=== PATIENT | female | born 1995 | race Caucasian/White ===

== ENCOUNTER 2016-06-06 17:50 | Emergency (ER) | payer BC, OTHER ==
[2016-06-06 18:10] VITALS: BP 121/67
[2016-06-06] MEDS ORDERED: Cyclobenzaprine TAB* 10 MG PO ONE (18:33)
--- NOTE | 2016-06-06 18:33 | UC ---
Upper Extremity HPI - HPI Summary HPI Summary: 21 y/o female c/o of left shoulder dislocation occurred around 1245 hours today while raising the arm at work, patient was able to get her shoulder back into place, 6/10 constant pain radiating into the left hand, described as as deep numbness/tingling sensation and spasm. Patient has a history of dislocating the shoulder in the past. - History of Current Complaint Chief Complaint: UCUpperExtremity Stated Complaint: LEFT SHOULDER PAIN-WC Time Seen by Provider: 06/06/16 18:13 Hx Obtained From: Patient Hx Last Menstrual Period: 05/12/16 ?: No Onset/Duration: Sudden Onset Severity Initially: Severe Severity Currently: Moderate Pain Intensity: 6 Pain Scale Used: 0-10 Numeric Location Of Pain: Is Diffuse - Left shoulder, Radiates To - down the left arm and into the left hand Character: Dull, Aching, Burning Alleviating Factor(s): Rest Associated Signs And Symptoms: Positive: Weakness, Numbness/Tingling Related History: Occupational Injury, Dominant Hand Right - Risk Factors Non-Orthopedic Risk Factor: Negative DVT Risk Factors: Oral Contraceptives Septic Arthritis Risk Factor: Negative Compartment Syndrome Risk Factors: Pain, Paresthesias - Allergies/Home Medications Allergies/Adverse Reactions: Allergies Allergy/AdvReac Type Severity Reaction Status Date / Time Sulfa Antibiotics Allergy rash Verified 06/06/16 18:10 Home Medications: Home Medications Acetaminophen [Extra Strength Acetaminop] 1,000 mg PO DAILY PRN 06/06/16 [ History Confirmed 06/06/16] Citalopram TAB* [Celexa TAB*] 10 mg PO BEDTIME 06/06/16 [History Confirmed 06/06] Diclofenac Sodium EC TAB* [Voltaren EC TAB*] 100 mg PO BEDTIME 06/06/16 [ History Confirmed 06/06/16] Folic Acid 5 mg PO BEDTIME 06/06/16 [History Confirmed 06/06/16] Gabapentin CAP(*) [Neurontin 100 mg CAP(*)] 100 mg PO TID 06/06/16 [History Confirmed 06/06/16] HYDROcodone/ACETAMIN 5-325 MG* [[place] 5-325 TAB*] 1 tab PO Q8H PRN 06/06/16 [ History Confirmed 06/06/16] Melatonin 10 mg PO BEDTIME 06/06/16 [History Confirmed 06/06/16] Methotrexate Sodium [Trexall] 10 mg PO SEE INSTRUCTIONS 06/06/16 [History Confirmed 06/06/16] PMH/Surg Hx/FS Hx/Imm Hx Previously Healthy: Yes Endocrine History Of: Denies: Diabetes, Thyroid Disease Cardiovascular History Of: Denies: Cardiac Disorders, Hypertension Respiratory History Of: Reports: Asthma - EXERCISE INDUCED Denies: COPD GI/ History Of: Denies: Ulcer - Surgical History Surgical History: None - Family History Known Family History: Positive: None Negative: Cardiac Disease, Hypertension, Diabetes, Respiratory Disease - Social History Alcohol Use: Occasionally Substance Use Type: None Smoking Status (MU): Current Every Day Smoker Type: Cigarettes Amount Used/How Often: 1/2 ppd Length of Time of Smoking/Using Tobacco: 3 yrs Have You Smoked in the Last Year: Yes Review of Systems Constitutional: Negative Skin: Negative Eyes: Negative ENT: Negative Cardiovascular: Negative Gastrointestinal: Negative Genitourinary: Negative Motor: Decreased ROM - Left shoulder, Weakness - Left upper extremity Neurovascular: Negative Musculoskeletal: Other: - hyper ligamentous laxity history Neurological: Negative Psychological: Negative All Other Systems Reviewed And Are Negative: Yes Physical Exam Triage Information Reviewed: Yes Appearance: Well-Appearing, No Pain Distress, Well-Nourished Vital Signs: Initial Vital Signs Temp 98.6 F 06/06/16 18:02 Pulse 76 06/06/16 18:02 Resp 20 06/06/16 18:02 BP 121/67 06/06/16 18:02 Pulse Ox 99 06/06/16 18:02 Vital Signs Reviewed: Yes Eye Exam: Normal ENT Exam: Normal ENT: Positive: Normal ENT inspection, Hearing grossly normal, Pharynx normal, TMs normal Dental Exam: Normal Neck exam: Normal Neck: Positive: Supple, Nontender, No Lymphadenopathy Respiratory Exam: Normal Respiratory: Positive: Chest non-tender, Lungs clear, Normal breath sounds, No respiratory distress, No accessory muscle use Cardiovascular Exam: Normal Cardiovascular: Positive: RRR, No Murmur, Pulses Normal, Brisk Capillary Refill Abdominal Exam: Normal Abdomen Description: Positive: Nontender, No Organomegaly, Soft Bowel Sounds: Positive: Present Musculoskeletal: Positive: Strength Limited @ - Left upper extremity, ROM Limited @ - left shoulder Neurological: Positive: Alert, Muscle Tone Normal Psychological Exam: Normal Skin Exam: Normal Upper Extremity Course/Dx - Differential Dx/Diagnosis Provider Diagnoses: Left shoulder dislocation with spontaneous reduction, work related injury Discharge - Discharge Plan Condition: Stable Disposition: HOME Prescriptions: Cyclobenzaprine TAB* [Flexeril TAB*] 5 mg PO TID PRN #30 tab PRN Reason: Pain Patient Education Materials: Shoulder Dislocation (ED) Referrals: Cj CHENEY,Jane West [Primary Care Provider] - As Soon As Possible Antonio Chavez MD [Medical Doctor] -
--- NOTE | 2016-06-06 18:53 | RAD ---
INDICATION: Left shoulder pain COMPARISON: None TECHNIQUE: Routine frontal and Y views were obtained. FINDINGS: The bony structures, joint spaces, and soft tissues are normal for age. IMPRESSION: NEGATIVE EXAMINATION.
== END 2016-06-06 19:17 | disposition home or self-care (01) ==
LOC: UCCORT 17:50
DX: S43.005A Unspecified dislocation of left shoulder joint, initial encounter (principal); X50.1XXA Overexertion from prolonged static or awkward postures, initial encounter; Y93.9 Activity, unspecified; Y92.89 Other specified places as the place of occurrence of the external cause; Y99.0 Civilian activity done for income or pay; Z88.2 Allergy status to sulfonamides; F17.210 Nicotine dependence, cigarettes, uncomplicated
CPT/HCPCS: 99213; A9270-GY; G0463

== ENCOUNTER 2016-11-18 09:41 | Emergency (ER) | payer BC ==
--- NOTE | 2016-11-18 11:14 | UC ---
Throat Pain/Nasal Tuan HPI - HPI Summary HPI Summary: 21 YEAR OLD PRESENTS WITH COMPLAINS OF RIGHT SIDED LARGE ABSCESS. I WILL SEND HER TO THE ER. - History of Current Complaint Stated Complaint: SORE THROAT,FEVER,SWOLLEN NECK,NAUSEA Time Seen by Provider: 11/18/16 11:14 Hx Obtained From: Patient Hx Last Menstrual Period: 05/12/16 Onset/Duration: Sudden Onset Severity: Moderate Pain Scale Used: 0-10 Numeric - 7 Cough: Nonproductive Associated Signs & Symptoms: Positive: Dysphagia - Allergies/Home Medications Allergies/Adverse Reactions: Allergies Allergy/AdvReac Type Severity Reaction Status Date / Time Sulfa Antibiotics Allergy rash Verified 11/18/16 11:27 Home Medications: Home Medications Dextromethorphan-Phenylephrine [Vicks Dayquil Cold & Flu] 2 cap PO Q6H PRN 11/18 [History Confirmed 11/18/16] PMH/Surg Hx/FS Hx/Imm Hx Previously Healthy: Yes - Surgical History Surgical History: None - Family History Known Family History: Positive: None Negative: Cardiac Disease, Hypertension, Diabetes, Respiratory Disease - Social History Alcohol Use: Occasionally Substance Use Type: None Smoking Status (MU): Current Every Day Smoker Type: Cigarettes Amount Used/How Often: 1/2 ppd Length of Time of Smoking/Using Tobacco: 3 yrs Have You Smoked in the Last Year: Yes Review of Systems Constitutional: Negative Skin: Negative Eyes: Negative ENT: Sore Throat Respiratory: Negative Cardiovascular: Negative Gastrointestinal: Negative Genitourinary: Negative Motor: Negative Neurovascular: Negative Musculoskeletal: Negative Neurological: Negative Psychological: Negative All Other Systems Reviewed And Are Negative: Yes Physical Exam Triage Information Reviewed: Yes Eye Exam: Normal ENT: Positive: Pharyngeal erythema, Nasal drainage, Tonsillar swelling, Tonsillar exudate Dental Exam: Normal Neck exam: Normal Neck: Positive: 1 Respiratory Exam: Normal Cardiovascular Exam: Normal Abdominal Exam: Normal Musculoskeletal Exam: Normal Neurological Exam: Normal Psychological Exam: Normal Skin Exam: Normal Throat Pain/Nasal Course/Dx - Differential Dx/Diagnosis Provider Diagnoses: PERITONSIOLLAR ABSCESS Discharge - Discharge Plan Condition: Stable Disposition: HOME Patient Education Materials: Pharyngitis (ED), Peritonsillar Abscess (ED) Referrals: Cj CHENEY,Jane West [Primary Care Provider] - Additional Instructions: PLEASE GO TO ER FOR PERITONSILLAR ABSCESS
[2016-11-18 11:27] VITALS: BP 125/86
== END 2016-11-18 11:38 | disposition home or self-care (01) ==
LOC: UCCORT 09:41
DX: J36 Peritonsillar abscess (principal); Z88.2 Allergy status to sulfonamides; F17.210 Nicotine dependence, cigarettes, uncomplicated
CPT/HCPCS: 99211; G0463

== ENCOUNTER 2017-06-15 13:29 | Emergency (ER) | payer SELFPAY ==
[2017-06-15] MEDS ORDERED: Ibuprofen TAB* 600 MG PO ONE ×2 (14:09→14:55)
--- NOTE | 2017-06-15 14:10 | UC ---
Minor Trauma HPI - HPI Summary HPI Summary: fell landing on left side while shoveling at work yesterday----left shoulder left side of back and left pelvis pain - History of Current Complaint Chief Complaint: UCUpperExtremity Stated Complaint: S/P FALL-LFT SHOULDER/HIP PAIN W/C Time Seen by Provider: 06/15/17 14:03 Hx Obtained From: Patient Hx Last Menstrual Period: 06/06/17 ?: No Onset/Duration: Sudden Onset Onset Of Pain: Immediate Severity Initially: Moderate Severity Currently: Moderate Pain Intensity: 7 Pain Scale Used: 0-10 Numeric Mechanism Of Injury: Fall From A Standing Position Aggravating Factor(s): Nothing Alleviating Factor(s): Nothing - Allergies/Home Medications Allergies/Adverse Reactions: Allergies Allergy/AdvReac Type Severity Reaction Status Date / Time Sulfa (Sulfonamide Allergy Rash Verified 06/15/17 13:33 Antibiotics) PMH/Surg Hx/FS Hx/Imm Hx Previously Healthy: No - Fibromyalgia - Surgical History Surgical History: None - Family History Known Family History: Positive: None Negative: Cardiac Disease, Hypertension, Diabetes, Respiratory Disease - Social History Occupation: Employed Full-time Lives: With Family Alcohol Use: Occasionally Substance Use Type: Marijuana Substance Use Comment - Amount & Last Used: REGULARLY Smoking Status (MU): Current Every Day Smoker Type: Cigarettes Amount Used/How Often: 1/2 ppd Length of Time of Smoking/Using Tobacco: 3 yrs Have You Smoked in the Last Year: Yes Review of Systems Constitutional: Negative Skin: Negative Eyes: Negative ENT: Negative Respiratory: Negative Cardiovascular: Negative Gastrointestinal: Negative Genitourinary: Negative Motor: Negative Neurovascular: Negative Musculoskeletal: Negative - shoulder, ribs, pelvis, Arthralgia Neurological: Negative Psychological: Negative Is Patient Immunocompromised?: No All Other Systems Reviewed And Are Negative: Yes Physical Exam Triage Information Reviewed: Yes Appearance: Well-Appearing, Well-Nourished, Pain Distress - walked in with a cane Vital Signs: Initial Vital Signs Temp 98.0 F 06/15/17 13:51 Pulse 77 06/15/17 13:51 Resp 16 06/15/17 13:51 BP 129/70 06/15/17 13:51 Pulse Ox 98 06/15/17 13:51 Vital Signs Reviewed: Yes Eye Exam: Normal Eyes: Positive: Conjunctiva Clear ENT Exam: Normal ENT: Positive: Normal ENT inspection, Hearing grossly normal, Pharynx normal, TMs normal, Uvula midline. Negative: Nasal congestion, Tonsillar swelling, Tonsillar exudate, Trismus, Muffled voice, Hoarse voice, Dental tenderness, Sinus tenderness Dental Exam: Normal Neck exam: Normal Neck: Positive: Supple, Nontender, No Lymphadenopathy Respiratory Exam: Normal Respiratory: Positive: Chest non-tender, Lungs clear, Normal breath sounds, No respiratory distress, No accessory muscle use Cardiovascular Exam: Normal Cardiovascular: Positive: RRR, No Murmur, Pulses Normal, Brisk Capillary Refill Musculoskeletal Exam: Normal Musculoskeletal: Positive: Strength Intact, ROM Intact, No Edema Neurological Exam: Normal Neurological: Positive: Alert, Muscle Tone Normal Psychological Exam: Normal Skin Exam: Normal Diagnostics - Radiology No standard instances Xray Interpretation: No Acute Changes Radiology Interpretation Completed By: ED Physician, Radiologist Minor Trauma Course/Dx - Course Course Of Treatment: ibuprofen, ice, rest follow with pcp prn - Differential Dx/Diagnosis Provider Diagnoses: Contusion left ribs, shoulder and pelvis Discharge - Discharge Plan Condition: Stable Disposition: HOME Prescriptions: Ibuprofen TAB* [Motrin TAB* 600 MG] 600 mg PO Q6H PRN #40 tab PRN Reason: pain Patient Education Materials: Contusion in Adults (ED) Forms: *Work Release Referrals: Sheldon Elizalde MD [Primary Care Provider] - If Needed
[2017-06-15] MEDS ORDERED: Ibuprofen TAB* 600 MG ONE (15:04)
[2017-06-15 15:06] VITALS: BP 129/70
--- NOTE | 2017-06-15 15:37 | RAD ---
INDICATION: Left hip pain after fall COMPARISON: None TECHNIQUE: An AP view of the pelvis and AP views of the hip in neutral and abducted position were obtained FINDINGS: Bones: There are no acute bony findings. Joint spaces: The hips articulate normally. The joint spaces are preserved. SI joints/symphysis: The SI joints and symphysis are intact. Other: None IMPRESSION: NEGATIVE EXAMINATION.
--- NOTE | 2017-06-15 15:38 | RAD ---
INDICATION: Left rib injury. COMPARISON: Comparison is made with a prior chest x-ray study from March 11, 2011. TECHNIQUE: 4 views of the left ribs and dual-energy PA views of the chest were obtained. FINDINGS: No fracture or significant focal osseous abnormality is seen. The heart is within normal limits in size. The lungs are clear. There is no evidence for pneumothorax or pleural effusion. IMPRESSION: NO EVIDENCE FOR FRACTURE.
--- NOTE | 2017-06-15 15:40 | RAD ---
Indication: Left shoulder pain. 4 views left shoulder demonstrates no fracture. No other bone or joint abnormality is identified. IMPRESSION: No fracture of the left shoulder is noted.
== END 2017-06-15 15:58 | disposition home or self-care (01) ==
LOC: UCCORT 13:29
DX: S20.212A Contusion of left front wall of thorax, initial encounter (principal); S40.012A Contusion of left shoulder, initial encounter; S30.0XXA Contusion of lower back and pelvis, initial encounter; W00.0XXA Fall on same level due to ice and snow, initial encounter; Y93.H1 Activity, digging, shoveling and raking; Y92.89 Other specified places as the place of occurrence of the external cause; Z88.2 Allergy status to sulfonamides; F17.210 Nicotine dependence, cigarettes, uncomplicated
CPT/HCPCS: 99212; A9270-GY; G0463

== ENCOUNTER 2017-10-18 15:35 | Emergency (ER) | payer OTHER ==
[2017-10-18 15:50] VITALS: BP 119/71
--- NOTE | 2017-10-18 16:27 | UC ---
Throat Pain/Nasal Tuan HPI - HPI Summary HPI Summary: P tc/o sore throat, body aches, fatigue X 1 day. Pt is 11 weeks . - History of Current Complaint Chief Complaint: UCGeneralIllness Stated Complaint: SORE THROAT, ACHES Time Seen by Provider: 10/18/17 16:23 Hx Obtained From: Patient Hx Last Menstrual Period: 06/06/17 ?: Yes Onset/Duration: Sudden Onset, Still Present Severity: Moderate Pain Intensity: 4 Cough: None Associated Signs & Symptoms: Positive: Dysphagia - Epiglottits Risk Factors Epiglottis Risk Factors: Sudden Onset - Allergies/Home Medications Allergies/Adverse Reactions: Allergies Allergy/AdvReac Type Severity Reaction Status Date / Time Sulfa (Sulfonamide Allergy Rash Verified 10/18/17 15:50 Antibiotics) PMH/Surg Hx/FS Hx/Imm Hx Previously Healthy: Yes - Surgical History Surgical History: None - Family History Known Family History: Positive: None Negative: Cardiac Disease, Hypertension, Diabetes, Respiratory Disease - Social History Occupation: Employed Full-time Lives: With Family Alcohol Use: Occasionally Substance Use Type: Marijuana Substance Use Comment - Amount & Last Used: REGULARLY Smoking Status (MU): Former Smoker Type: Cigarettes Amount Used/How Often: 1/2 ppd Length of Time of Smoking/Using Tobacco: 3 yrs Have You Smoked in the Last Year: Yes Review of Systems Constitutional: Fatigue Skin: Negative Eyes: Negative ENT: Sore Throat Respiratory: Negative Cardiovascular: Negative Gastrointestinal: Negative Genitourinary: Negative Motor: Negative Neurovascular: Negative Musculoskeletal: Myalgia Neurological: Negative Psychological: Negative Is Patient Immunocompromised?: No All Other Systems Reviewed And Are Negative: Yes Physical Exam Triage Information Reviewed: Yes Appearance: Well-Appearing Vital Signs: Initial Vital Signs Temp 97.4 F 10/18/17 15:45 Pulse 91 10/18/17 15:45 Resp 16 10/18/17 15:45 BP 119/71 10/18/17 15:45 Pulse Ox 99 10/18/17 15:45 Vital Signs Reviewed: Yes Eye Exam: Normal ENT: Positive: Pharyngeal erythema Dental Exam: Normal Neck exam: Normal Respiratory Exam: Normal Cardiovascular Exam: Normal Musculoskeletal Exam: Normal Neurological Exam: Normal Psychological Exam: Normal Skin Exam: Normal Diagnostics - Laboratory Diagnostic Studies Completed/Ordered: rapid strep negative Throat Pain/Nasal Course/Dx - Differential Dx/Diagnosis Differential Diagnosis/HQI/PQRI: Pharyngitis, URI Provider Diagnoses: viral syndrome Discharge - Sign-Out/Discharge Documenting (check all that apply): Patient Departure - Discharge Plan Condition: Stable Disposition: HOME Patient Education Materials: Viral Syndrome (ED) Referrals: Sheldon Elizalde MD [Primary Care Provider] - If Needed - Billing Disposition and Condition Condition: STABLE Disposition: Home
== END 2017-10-18 16:54 | disposition home or self-care (01) ==
LOC: UCCORT 15:35
DX: O98.511 Other viral diseases complicating pregnancy, first trimester (principal); O26.811 Pregnancy related exhaustion and fatigue, first trimester; B34.9 Viral infection, unspecified; J02.9 Acute pharyngitis, unspecified; Z88.2 Allergy status to sulfonamides; Z87.891 Personal history of nicotine dependence; Z3A.11 11 weeks gestation of pregnancy
CPT/HCPCS: 87651; 99211; G0463

== ENCOUNTER 2018-11-15 08:02 | Emergency (ER) | payer BC, OTHER ==
[2018-11-15 08:20] VITALS: BP 116/66
--- NOTE | 2018-11-15 08:36 | UC ---
Throat Pain/Nasal Tuan HPI - HPI Summary HPI Summary: has had sore throat, left tonsillar swelling, and dysphagia x 4 days. Headache a couple of days ago, now resolved. Subjective fever, has been using acetaminophen regularly. - History of Current Complaint Chief Complaint: UCGeneralIllness Stated Complaint: ST Time Seen by Provider: 11/15/18 08:28 Hx Obtained From: Patient Hx Last Menstrual Period: irregular ?: No Onset/Duration: Gradual Onset, Lasting Days - 4 Severity: Moderate Pain Intensity: 4 Cough: None Associated Signs & Symptoms: Positive: Dysphagia, Fever - subjective - Epiglottits Risk Factors Epiglottis Risk Factors: Negative - Allergies/Home Medications Allergies/Adverse Reactions: Allergies Allergy/AdvReac Type Severity Reaction Status Date / Time Sulfa (Sulfonamide Allergy Rash Verified 11/15/18 08:16 Antibiotics) Home Medications: Home Medications Pnv No.95/Ferrous Fum/Folic AC [ Caplet] 1 each PO DAILY 11/15/18 [ History Confirmed 11/15/18] PMH/Surg Hx/FS Hx/Imm Hx Previously Healthy: Yes - twins - Surgical History Surgical History: Yes Surgery Procedure, Year, and Place: - Family History Known Family History: Positive: Cardiac Disease - father of [place] in his early 40's, Diabetes - both parents Negative: Respiratory Disease - Social History Occupation: Employed Full-time Lives: With Family Alcohol Use: Occasionally Substance Use Type: None Substance Use Comment - Amount & Last Used: REGULARLY Smoking Status (MU): Former Smoker Type: Cigarettes Amount Used/How Often: 1/2 ppd Length of Time of Smoking/Using Tobacco: 3 yrs Have You Smoked in the Last Year: Yes Review of Systems All Other Systems Reviewed And Are Negative: Yes Constitutional: Positive: Fatigue Eyes: Positive: Negative ENT: Positive: Sore Throat, Ear Ache. Negative: Sinus Congestion, Sinus Pain/ Tenderness Respiratory: Positive: Negative. Negative: Shortness Of Breath, Cough Cardiovascular: Positive: Negative Gastrointestinal: Positive: Negative Genitourinary: Positive: Negative Motor: Positive: Negative Neurovascular: Positive: Negative Physical Exam Triage Information Reviewed: Yes Appearance: Ill-Appearing, Pain Distress - mild Vital Signs: Initial Vital Signs Temp 98.9 F 11/15/18 08:14 Pulse 76 11/15/18 08:14 Resp 18 11/15/18 08:14 BP 116/66 11/15/18 08:14 Pulse Ox 99 11/15/18 08:14 Eyes: Positive: Conjunctiva Clear ENT: Positive: Pharyngeal erythema, TMs normal, Tonsillar swelling - left tonsil enlarged almost to uvula, with erythema. Negative: Tonsillar exudate, Trismus Neck: Positive: Supple, Nontender, Enlarged Nodes @ - left tonsillar node enlarged and tender. Respiratory: Positive: Lungs clear, Normal breath sounds Cardiovascular: Positive: RRR, No Murmur Musculoskeletal Exam: Normal Neurological: Positive: Alert, Muscle Tone Normal Psychological Exam: Normal Skin Exam: Normal Diagnostics - Laboratory Lab Results: Rapid strep negative. Throat Pain/Nasal Course/Dx - Course Course Of Treatment: Unilateral tonsillitis with adenopathy, clinical appearance consistent with bacterial infection. Amoxicillin given. Off work x 2 days, rest and fluids. - Differential Dx/Diagnosis Differential Diagnosis/HQI/PQRI: Pharyngitis, Sinusitis, Tonsillitis Provider Diagnosis: Tonsillitis Discharge - Sign-Out/Discharge Documenting (check all that apply): Patient Departure All imaging exams completed and their final reports reviewed: No Studies - Discharge Plan Condition: Stable Disposition: HOME Prescriptions: Amoxicillin 875 mg PO BID #14 tablet Patient Education Materials: Tonsillitis (ED) Forms: *Work Release Referrals: No Primary Care Phys,NOPCP [Primary Care Provider] - Additional Instructions: Begin use of amoxicillin for left tonsillitis. Use of amoxicillin is safe with . You can use warm water and salt gargling to help to decrease inflammation. Anticipate improvement in 48 hours. - Billing Disposition and Condition Condition: STABLE Disposition: Home
== END 2018-11-15 09:07 | disposition home or self-care (01) ==
LOC: UCCORT 08:02
DX: J03.90 Acute tonsillitis, unspecified (principal); Z88.2 Allergy status to sulfonamides; Z87.891 Personal history of nicotine dependence
CPT/HCPCS: 87651; 99212; G0463